=== PATIENT | male | born 1990 | race Two or more races ===

== ENCOUNTER 2024-10-28 23:24 | Inpatient (IN) | payer OTHER ==
[~2024-10-28] VITALS: Ht 167.6 cm; Wt 79.5 kg
[2024-10-29] MEDS ORDERED: IPRATROPIUM BROMIDE 0.5 MG/2.5 ML NEB SOLUTION NEB PRN (01:00)
[2024-10-29] MEDS ORDERED: BISACODYL 10 MG RECTAL RECTAL SUPPOSITORY PR PRN (01:00)
[2024-10-29] MEDS ORDERED: ALBUTEROL SULFATE 2.5 MG/0.5 ML NEB SOLUTION NEB PRN (01:00)
[2024-10-29] MEDS ORDERED: ZOLPIDEM TARTRATE 5 MG TABLET PO PRN (01:00)
[2024-10-29] MEDS ORDERED: ONDANSETRON HCL 4 MG/2 ML VIAL IVP PRN (01:00)
[2024-10-29] MEDS ORDERED: MAGNESIUM HYDROXIDE SUSPENSION 30 ML UDCUP PO PRN (01:00)
[2024-10-29 02:32] LABS: BASOPHILS % (AUTO) 0.6 % (0.0-2.0); EOSINOPHILS % (AUTO) 0.8 % (1.0-6.0); HEMATOCRIT 40.3 % (41-53); HEMOGLOBIN 13.7 g/dL (13.5-17.5); LYMPHOCYTES # (AUTO) 1.1 K/uL (1.0-4.8); LYMPHOCYTES % (AUTO) 12.6 % (22.0-44.0); MEAN CORPUSCULAR HEMOGLOBIN 29.6 pg (26.0-34.0); MEAN CORPUSCULAR HGB CONC 34.1 G/dL (31.0-37.0); MEAN CORPUSCULAR VOLUME 87 fL (80-100); MONOCYTES # (AUTO) 0.7 K/uL (0.1-1.0); MONOCYTES % (AUTO) 8.2 % (2.0-9.0); NEUTROPHILS # (AUTO) 6.8 K/uL (1.8-7.7); NEUTROPHILS % (AUTO) 77.8 % (40.0-70.0); PLATELET COUNT (AUTO) 337 K/uL (150-450); RED BLOOD CELL COUNT(AUTO) 4.64 MIL/uL (4.50-5.90); RED CELL DISTRIBUTION WIDTH 13.7 % (11.5-14.5); WHITE BLOOD COUNT (AUTO) 8.8 K/uL (4.5-11.0)
[2024-10-29 02:35] LABS: ANION GAP 12 mmol/L (8-16); CALCIUM, TOTAL 8.8 mg/dL (8.8-10.5); CARBON DIOXIDE 26 mmol/L (22-29); CHLORIDE 99 mmol/L (98-107); CREATININE 0.79 mg/dL (0.60-1.30); GLOMERULAR FILTR. RATE CALC > 60 mL/min (>60); GLUCOSE,RANDOM 82 mg/dL (70-110); POTASSIUM 3.9 mmol/L (3.5-5.1); SODIUM SERUM 137 mmol/L (136-145); UREA NITROGEN, BLOOD 10 mg/dL (7-18)
[2024-10-29 02:41] LABS: ALANINE AMINOTRANSFERASE 14 U/L (12-78); ALBUMIN 3.7 g/dL (3.4-5.0); ALKALINE PHOSPHATASE 141 U/L (46-116); ASPARTATE AMINOTRANSFERASE 18 U/L (15-37); BILIRUBIN,TOTAL 0.6 mg/dL (0.1-1.0); TOTAL PROTEIN, SERUM 8.3 g/dL (6.4-8.2)
[2024-10-29] MEDS: PANTOPRAZOLE SODIUM 40 MG DR TABLET PO SCH (07:44)
[2024-10-29] MEDS: HEPARIN SODIUM,PORCINE 5,000 UNITS/ML VIAL SQ SCH (07:44)
[2024-10-29 12:44] LABS: MTB-RIFAMPIN RESISTANCE NOT DETECTED (Not detectd)
[2024-10-29 13:13] LABS: MTB PCR w/Rif. Resistance-SPUT DETECTED (Not Detectd)
[2024-10-29] MEDS: TraMADol HCL 50 MG TABLET PO PRN (18:46)
[2024-10-29 20:00] VITALS: BP 115/52; PULSE 69; PULSE 76; RESP 20; TEMP 97.7; O2SAT 96; O2SAT 97
[2024-10-30] MEDS ORDERED: SODIUM CHLORIDE 3% 15 ML NEB SOLUTION NEB ONE (04:16)
[2024-10-30 04:30] VITALS: PULSE 77; RESP 16; O2SAT 76
[2024-10-30 14:20] LABS: MTB-RIFAMPIN RESISTANCE NOT DETECTED (Not detectd)
[2024-10-30 14:42] LABS: MTB PCR w/Rif. Resistance-SPUT DETECTED (Not Detectd)
[2024-10-30] MEDS: *CLINICAL-RX DOSING [ENTER DRUG IN COMMENTS] CLINICAL ONE (16:33)
[2024-10-30] MEDS: ETHAMBUTOL HCL 400 MG TABLET PO SCH (17:20)
[2024-10-30] MEDS: PYRAZINAMIDE 500 MG TABLET PO SCH (17:20)
[2024-10-30] MEDS: RIFAMPIN 300 MG CAPSULE PO SCH (17:20)
[2024-10-30] MEDS: ISONIAZID 300 MG TABLET PO SCH (17:20)
[2024-10-30] MEDS: PYRIDOXINE HCL 50 MG TABLET PO SCH (17:21)
[2024-10-30] MEDS ORDERED: ONDANSETRON HCL 4 MG/2 ML VIAL PO PRN (19:00)
[2024-10-30] MEDS: ONDANSETRON 4 MG TABLET PO PRN (19:19)
[2024-10-30 19:35] VITALS: BP 119/78; PULSE 84; RESP 18; TEMP 98.7; O2SAT 99
[2024-10-31 05:31] VITALS: BP 115/63; PULSE 72; RESP 18; TEMP 98.4; O2SAT 98
[2024-10-31 08:25] VITALS: BP 115/63; PULSE 63; RESP 18; TEMP 98.8; O2SAT 99
[2024-10-31 11:30] VITALS: PULSE 72; RESP 16; O2SAT 100
[2024-10-31] MEDS ORDERED: IOHEXOL 240 MG/ML 50 ML VIAL ONE (11:38)
[2024-10-31 14:48] LABS: BASOPHILS % (AUTO) 0.8 % (0.0-2.0); EOSINOPHILS % (AUTO) 1.2 % (1.0-6.0); HEMATOCRIT 40.5 % (41-53); HEMOGLOBIN 13.6 g/dL (13.5-17.5); LYMPHOCYTES # (AUTO) 1.2 K/uL (1.0-4.8); LYMPHOCYTES % (AUTO) 13.3 % (22.0-44.0); MEAN CORPUSCULAR HEMOGLOBIN 29.1 pg (26.0-34.0); MEAN CORPUSCULAR HGB CONC 33.6 G/dL (31.0-37.0); MEAN CORPUSCULAR VOLUME 87 fL (80-100); MONOCYTES # (AUTO) 0.8 K/uL (0.1-1.0); MONOCYTES % (AUTO) 9.1 % (2.0-9.0); NEUTROPHILS # (AUTO) 6.6 K/uL (1.8-7.7); NEUTROPHILS % (AUTO) 75.6 % (40.0-70.0); PLATELET COUNT (AUTO) 295 K/uL (150-450); RED BLOOD CELL COUNT(AUTO) 4.67 MIL/uL (4.50-5.90); RED CELL DISTRIBUTION WIDTH 13.5 % (11.5-14.5); WHITE BLOOD COUNT (AUTO) 8.7 K/uL (4.5-11.0)
[2024-10-31 15:01] LABS: ALANINE AMINOTRANSFERASE 12 U/L (12-78); ALBUMIN 3.4 g/dL (3.4-5.0); ALKALINE PHOSPHATASE 129 U/L (46-116); ANION GAP 8 mmol/L (8-16); ASPARTATE AMINOTRANSFERASE 18 U/L (15-37); BILIRUBIN,TOTAL 0.9 mg/dL (0.1-1.0); CALCIUM, TOTAL 8.8 mg/dL (8.8-10.5); CARBON DIOXIDE 28 mmol/L (22-29); CHLORIDE 98 mmol/L (98-107); CREATININE 0.85 mg/dL (0.60-1.30); GLOMERULAR FILTR. RATE CALC > 60 mL/min (>60); GLUCOSE,RANDOM 82 mg/dL (70-110); POTASSIUM 4.5 mmol/L (3.5-5.1); SODIUM SERUM 134 mmol/L (136-145); TOTAL PROTEIN, SERUM 7.7 g/dL (6.4-8.2); UREA NITROGEN, BLOOD 11 mg/dL (7-18)
[2024-10-31 19:36] VITALS: BP 105/68; PULSE 72; RESP 18; TEMP 98; O2SAT 96
[2024-10-31] MEDS: PYRAZINAMIDE 500 MG TABLET PO ONE (21:00)
[2024-10-31] MEDS: ISONIAZID 300 MG TABLET PO ONE (21:01)
[2024-10-31] MEDS: ETHAMBUTOL HCL 400 MG TABLET PO ONE (21:01)
[2024-10-31] MEDS: RIFAMPIN 300 MG CAPSULE PO ONE (21:01)
[2024-11-01 05:21] VITALS: BP 101/56; PULSE 59; RESP 18; TEMP 97.8; O2SAT 97
[2024-11-01] MEDS: ETHAMBUTOL HCL 400 MG TABLET PO SCH (09:41)
[2024-11-01 20:09] VITALS: BP 118/72; PULSE 69; RESP 18; TEMP 98.3; O2SAT 97
[2024-11-02 09:24] VITALS: BP 123/74; PULSE 70; RESP 20; TEMP 97.9; O2SAT 97
[2024-11-02 16:07] LABS: HIV 1-2 SCREEN 4TH GEN W/RFLX Non Reactive (Non Reactive)
[2024-11-02 19:45] VITALS: BP 120/68; PULSE 75; RESP 16; TEMP 98.5; O2SAT 97
[2024-11-03] MEDS ORDERED: SODIUM CHLORIDE 3% 15 ML NEB SOLUTION NEB ONE ×2 (11:45→20:03)
[2024-11-03 19:55] VITALS: BP 122/73; PULSE 70; RESP 20; TEMP 98.2; O2SAT 97
[2024-11-03] MEDS: ACETAMINOPHEN 325 MG TABLET PO PRN (20:21)
[2024-11-03 20:40] VITALS: PULSE 70; RESP 18; O2SAT 99
[2024-11-04 05:05] VITALS: PULSE 72; RESP 16; O2SAT 98
[2024-11-04 05:07] LABS: QUANTIFERON+, Nil Value 0.06 IU/mL; QUANTIFERON+,Mitogen Value 5.77 IU/mL; QUANTIFERON+,TB1 Antigen Value 2.32 IU/mL; QUANTIFERON+,TB2 Antigen Value 2.57 IU/mL; QUANTIFERON, TB GOLD PLUS Positive (Negative)
[2024-11-05 19:35] VITALS: BP 104/62; PULSE 79; RESP 18; TEMP 98.5; O2SAT 100
[2024-11-05 19:35] LABS: BASOPHILS % (AUTO) 0.6 % (0.0-2.0); EOSINOPHILS % (AUTO) 1.8 % (1.0-6.0); HEMATOCRIT 42.8 % (41-53); HEMOGLOBIN 14.3 g/dL (13.5-17.5); LYMPHOCYTES # (AUTO) 1.2 K/uL (1.0-4.8); LYMPHOCYTES % (AUTO) 14.8 % (22.0-44.0); MEAN CORPUSCULAR HGB CONC 33.4 G/dL (31.0-37.0); MEAN CORPUSCULAR VOLUME 87 fL (80-100); MONOCYTES # (AUTO) 0.7 K/uL (0.1-1.0); MONOCYTES % (AUTO) 9.1 % (2.0-9.0); NEUTROPHILS # (AUTO) 5.8 K/uL (1.8-7.7); NEUTROPHILS % (AUTO) 73.7 % (40.0-70.0); PLATELET COUNT (AUTO) 327 K/uL (150-450); RED BLOOD CELL COUNT(AUTO) 4.93 MIL/uL (4.50-5.90); RED CELL DISTRIBUTION WIDTH 13.6 % (11.5-14.5); WHITE BLOOD COUNT (AUTO) 7.9 K/uL (4.5-11.0)
[2024-11-05 19:47] LABS: ANION GAP 6 mmol/L (8-16); CARBON DIOXIDE 29 mmol/L (22-29); CHLORIDE 102 mmol/L (98-107); CREATININE 0.92 mg/dL (0.60-1.30); GLOMERULAR FILTR. RATE CALC > 60 mL/min (>60); GLUCOSE,RANDOM 96 mg/dL (70-110); POTASSIUM 4.9 mmol/L (3.5-5.1); SODIUM SERUM 137 mmol/L (136-145); UREA NITROGEN, BLOOD 12 mg/dL (7-18)
[2024-11-05 19:53] LABS: ALANINE AMINOTRANSFERASE 9 U/L (12-78); ALBUMIN 3.6 g/dL (3.4-5.0); ALKALINE PHOSPHATASE 123 U/L (46-116); ASPARTATE AMINOTRANSFERASE 14 U/L (15-37); BILIRUBIN,TOTAL 0.5 mg/dL (0.1-1.0)
[2024-11-06] MEDS: PYRAZINAMIDE 500 MG TABLET PO SCH (13:21)
[2024-11-06] MEDS: PYRIDOXINE HCL 50 MG TABLET PO SCH (13:22)
[2024-11-06] MEDS: ETHAMBUTOL HCL 400 MG TABLET PO SCH (13:22)
[2024-11-06] MEDS: RIFAMPIN 300 MG CAPSULE PO SCH (13:22)
[2024-11-06] MEDS: ISONIAZID 300 MG TABLET PO SCH (13:22)
[2024-11-06 19:32] VITALS: BP 121/78; PULSE 75; RESP 18; TEMP 98.4; O2SAT 100
[2024-11-07 22:04] VITALS: BP 126/76; PULSE 63; RESP 20; TEMP 98.1; O2SAT 100
[2024-11-08 08:10] VITALS: BP 136/88; PULSE 78; RESP 19; TEMP 98.7; O2SAT 98
[2024-11-08 14:57] VITALS: BP 156/74; PULSE 72; RESP 19; TEMP 98.7; O2SAT 98
[2024-11-08] MEDS ORDERED: ETHA400T25 PO (15:30)
[2024-11-08] MEDS ORDERED: ISON300T90 PO (15:31)
[2024-11-08] MEDS ORDERED: PYRA500T33 PO (15:33)
[2024-11-08] MEDS ORDERED: PYRI-9 PO (15:34)
[2024-11-08] MEDS ORDERED: RIFA300C63 PO (15:35)
== END 2024-11-08 20:23 | DRG 179 ==
LOC: EMS 23:27 → EDH 10-29 00:52 → 6N 10-29 09:36
PROVIDERS: ADMIT Hospitalist; ATTEND Hospitalist
DX: A15.9 Respiratory tuberculosis unspecified (principal); Z87.891 Personal history of nicotine dependence; R91.8 Other nonspecific abnormal finding of lung field; F14.90 Cocaine use, unspecified, uncomplicated; F12.90 Cannabis use, unspecified, uncomplicated
CPT/HCPCS: 71046; 71250; 80048; 80053; 80076; 85025; 86480; 87015; 87206; 87389; 87556; 94640; 97116; 97162; 97530; 99285; J1644; Q0162; Q9966; 36415-L1; 36415-TC; J7613